=== PATIENT | female | born 1985 | race Caucasian/White ===

== ENCOUNTER 2018-02-17 20:31 | Emergency (ER) | payer OTHER ==
[2018-02-17] MEDS ORDERED: NORMAL SALINE 1000 ML 1,000 ML IV ONE (22:09)
[2018-02-17] MEDS ORDERED: METOCLOPRAMIDE HCL INJ/PF 10 MG/2 ML SDV IV ONE (22:09)
--- NOTE | 2018-02-17 22:12 | ER Document Report ---
ED GI/ - General Chief Complaint: Nausea/Vomiting Stated Complaint: NAUSEA Time Seen by Provider: 02/17/18 21:59 Notes: Patient is a 32-year-old female, at 18 weeks gestation by ultrasound, that comes to the emergency department for chief complaint of vomiting over the past 24 hours. She denies fever or chills, she states she has had some mild cramps in the abdomen but no particular abdominal pain. She denies dysuria, flank pain, vaginal bleeding. She is feeling baby move. She had an unremarkable loose stool earlier she reports. She denies hematemesis or hematochezia. She has had a , takes Diclegis for nausea, denies any other medical history. She denies any obvious sick contacts, raw food, recent travel, recent antibiotics. Follows with [facility]. - Related Data Allergies/Adverse Reactions: latex Allergy (Verified 02/17/18 20:33) Past Medical History - General Information source: Patient - Social History Smoking Status: Never Smoker Chew tobacco use (# tins/day): No Frequency of alcohol use: None Drug Abuse: None Lives with: Family Family History: Reviewed & Not Pertinent Patient has suicidal ideation: No Patient has homicidal ideation: No - Medical History Medical History: Negative Renal/ Medical History: Denies: Hx Peritoneal Dialysis Past Surgical History: Reports: Hx Section - Immunizations Immunizations up to date: Yes Hx Diphtheria, Pertussis, Tetanus Vaccination: Yes Review of Systems - Review of Systems Constitutional: No symptoms reported EENT: No symptoms reported Cardiovascular: No symptoms reported Respiratory: No symptoms reported Gastrointestinal: See HPI Genitourinary: No symptoms reported Female Genitourinary: See HPI Musculoskeletal: No symptoms reported Skin: No symptoms reported Hematologic/Lymphatic: No symptoms reported Neurological/Psychological: No symptoms reported Physical Exam - Vital signs Vitals: Temp Pulse Resp BP Pulse Ox 98.7 F 110 H 18 120/78 98 02/17/18 20:43 02/17/18 20:43 02/17/18 20:43 02/17/18 20:43 02/17/18 20:43 - Notes Notes: GENERAL: Alert, interacts well. No acute distress. HEAD: Normocephalic, atraumatic. EYES: Pupils equal, round, and reactive to light. Extraocular movements intact. ENT: Oral mucosa dry, tongue midline. Oropharynx unremarkable. Airway patent. Nares patent, no nasal septal hematoma, TM's intact. NECK: Full range of motion. Supple. Trachea midline. LUNGS: Clear to auscultation bilaterally, no wheezes, rales, or rhonchi. No respiratory distress. HEART: Tachycardia, normal rhythm. No murmur ABDOMEN: Benign abdomen with no tenderness, guarding, rigidity, or rebound tende rness. Gravid abdomen. GENITOURINARY: Deferred EXTREMITIES: Moves all 4 extremities spontaneously. No edema, normal radial and dorsalis pedis pulses bilaterally. No cyanosis. BACK: no cervical, thoracic, lumbar midline tenderness. No saddle anesthesia, normal distal neurovascular exam. NEUROLOGICAL: Alert and oriented x3. Normal speech. [cranial nerves II through XII grossly intact]. PSYCH: Normal affect, normal mood. SKIN: Warm, dry, normal turgor. No rashes or lesions noted. Course - Re-evaluation Re-evalutation: Nontender abdomen. No current abdominal complaints. Patient is dehydrated appearing on exam with dry mucous membranes and tachycardia. Patient is feeling baby move. No bleeding. CBC unremarkable. Mild hyponatremia. Ketones in urine with elevated specific gravity. Consistent with dehydration. Based on her examination and workup I have low suspicion of acute abdomen. Low suspicion of abruption or gynecologic emergency. After rehydration, nausea medication, patient tolerated p.o. without any difficulty. Tachycardia resolved. Patient has no current complaints. Requesting to be discharged home. Requesting the same medication she was provided because of the efficacy. Discussed medications, follow-up, and return precautions in detail. Patient states understanding and agreement. Stable at time of discharge. - Vital Signs Vital signs: Temp Pulse Resp BP Pulse Ox 97.8 F 93 18 119/70 99 02/17/18 23:50 02/17/18 23:50 02/17/18 20:43 02/17/18 23:50 02/17/18 23:50 - Laboratory Result Diagrams: 02/17/18 21:46 02/17/18 21:46 Laboratory results interpreted by me: 02/17/18 02/17/18 02/17/18 21:46 21:46 22:03 RDW 14.1 H Sodium 136.3 L BUN 5 L Creatinine 0.39 L AST 78 H Urine Protein 30 H Urine Ketones 20 H Urine Urobilinogen 2.0 H Discharge - Discharge Clinical Impression: Dehydration Nausea and vomiting Qualifiers: Vomiting type: unspecified Vomiting Intractability: non-intractable Qualified Code(s): R11.2 - Nausea with vomiting, unspecified Condition: Stable Disposition: HOME, SELF-CARE Additional Instructions: Your workup shows dehydration but no other concerning findings. Take Reglan as prescribed for nausea, take Pepcid to help relieve the abdominal cramps, start with clear fluids and bland diet and slowly progress. Follow-up with primary care. Return if you worsen including uncontrolled vomiting, severe abdominal pain, fever/chills, or any other concerning or worsening symptoms. Prescriptions: Famotidine [Pepcid 20 mg Tablet] 20 mg PO BID #12 tablet Metoclopramide HCl [Reglan] 5 mg PO ASDIR PRN #30 tablet PRN Reason:
[2018-02-17 22:20] LABS: ABSOLUTE EOSINOPHILS # (AUTO) 0.1 10^3/uL (0.0-0.6); ABSOLUTE LYMPHOCYTES (AUTO) 1.5 10^3/uL (0.5-4.7); ABSOLUTE MONOCYTES (AUTO) 0.6 10^3/uL (0.1-1.4); ABSOLUTE NEUT (AUTO) 7.3 10^3/uL (1.7-8.2); BASOPHILS % (AUTO) 0.1 % (0-2); EOSINOPHILS % (AUTO) 0.9 % (0-6); HEMATOCRIT 36.5 % (36.0-47.0); HEMOGLOBIN 12.7 g/dL (12.0-15.5); LYMPHOCYTES % (AUTO) 15.6 % (13-45); MEAN CORPUSCULAR HEMOGLOBIN 29.4 pg (27.0-33.4); MEAN CORPUSCULAR HGB CONC 34.7 g/dL (32.0-36.0); MEAN CORPUSCULAR VOLUME 85 fl (80-97); MONOCYTES % (AUTO) 6.2 % (3-13); PLATELET COUNT 253 10^3/uL (150-450); RED CELL DISTRIBUTION WIDTH 14.1 % (11.5-14.0); SEGMENTED NEUTROPHILS % (AUTO) 77.2 % (42-78); TOTAL CELLS COUNTED % (AUTO) 100 %; WHITE BLOOD COUNT 9.4 10^3/uL (4.0-10.5)
[2018-02-17 22:26] LABS: ALANINE AMINOTRANSFERASE 40 U/L (9-52); ALBUMIN 4.5 g/dL (3.5-5.0); ALKALINE PHOSPHATASE 58 U/L (38-126); ANION GAP 11 (5-19); ASPARTATE AMINO TRANSFERASE 78 U/L (14-36); BILIRUBIN,DIRECT 0.1 mg/dL (0.0-0.4); BILIRUBIN,TOTAL 0.7 mg/dL (0.2-1.3); BLOOD UREA NITROGEN 5 mg/dL (7-20); CALCIUM 9.8 mg/dL (8.4-10.2); CARBON DIOXIDE 23 mmol/L (22-30); CHLORIDE 102 mmol/L (98-107); GLUCOSE 108 mg/dL (75-110); LIPASE 97.8 U/L (23-300); SODIUM 136.3 mmol/L (137-145); TOTAL PROTEIN 7.4 g/dL (6.3-8.2)
[2018-02-17 22:37] LABS: APPEARANCE,URINE SLIGHTLY-CLOUDY; BILIRUBIN,URINE NEGATIVE (NEGATIVE); GLUCOSE, URINE NEGATIVE (NEGATIVE); KETONES,URINE 20 mg/dL (NEGATIVE); LEUKOCYTE ESTERASE,URINE NEGATIVE (NEGATIVE); NITRITE,URINE NEGATIVE (NEGATIVE); PROTEIN,URINE 30 mg/dL (NEGATIVE); URINE SPECIFIC GRAVITY 1.024
[2018-02-17 22:38] LABS: COLOR,URINE YELLOW
[2018-02-17] MEDS ORDERED: FAMOTIDINE 20 MG TABLET PO ONE (23:10)
[2018-02-17 23:52] VITALS: BP 119/70
== END 2018-02-17 23:50 | disposition home or self-care (01) ==
LOC: ER 20:31
DX: O21.8 Other vomiting complicating pregnancy (principal); Z3A.18 18 weeks gestation of pregnancy; E86.0 Dehydration
CPT/HCPCS: 99284; 36415; 83690; 85025; 80053; 81001; J2765; J7030

== ENCOUNTER 2019-03-11 02:18 | Emergency (ER) | payer MEDICAID, OTHER ==
[2019-03-11 03:45] LABS: ABSOLUTE BASOPHILS # (AUTO) 0.1 10^3/uL (0.0-0.2); ABSOLUTE EOSINOPHILS # (AUTO) 0.2 10^3/uL (0.0-0.6); ABSOLUTE LYMPHOCYTES (AUTO) 3.3 10^3/uL (0.5-4.7); ABSOLUTE MONOCYTES (AUTO) 0.6 10^3/uL (0.1-1.4); ABSOLUTE NEUT (AUTO) 5.8 10^3/uL (1.7-8.2); BASOPHILS % (AUTO) 1.1 % (0-2); HEMATOCRIT 38.8 % (36.0-47.0); HEMOGLOBIN 13.2 g/dL (12.0-15.5); LYMPHOCYTES % (AUTO) 33.1 % (13-45); MEAN CORPUSCULAR HEMOGLOBIN 28.9 pg (27.0-33.4); MEAN CORPUSCULAR HGB CONC 33.9 g/dL (32.0-36.0); MEAN CORPUSCULAR VOLUME 85 fl (80-97); MONOCYTES % (AUTO) 5.9 % (3-13); PLATELET COUNT 274 10^3/uL (150-450); RED BLOOD COUNT 4.55 10^6/uL (3.72-5.28); RED CELL DISTRIBUTION WIDTH 14.8 % (11.5-14.0); SEGMENTED NEUTROPHILS % (AUTO) 57.9 % (42-78); TOTAL CELLS COUNTED % (AUTO) 100 %
[2019-03-11 04:03] LABS: ALBUMIN 4.6 g/dL (3.5-5.0); ALKALINE PHOSPHATASE 65 U/L (38-126); ANION GAP 12 (5-19); ASPARTATE AMINO TRANSFERASE 43 U/L (14-36); BILIRUBIN,TOTAL 0.8 mg/dL (0.2-1.3); BLOOD UREA NITROGEN 10 mg/dL (7-20); CALCIUM 10.1 mg/dL (8.4-10.2); CARBON DIOXIDE 23 mmol/L (22-30); CHLORIDE 102 mmol/L (98-107); GLUCOSE 116 mg/dL (75-110); POTASSIUM 4.5 mmol/L (3.6-5.0); TOTAL PROTEIN 8.2 g/dL (6.3-8.2)
[2019-03-11 04:06] LABS: APPEARANCE,URINE SLIGHTLY-CLOUDY; BILIRUBIN,URINE NEGATIVE (NEGATIVE); COLOR,URINE YELLOW; GLUCOSE, URINE NEGATIVE (NEGATIVE); KETONES,URINE NEGATIVE (NEGATIVE); LEUKOCYTE ESTERASE,URINE NEGATIVE (NEGATIVE); NITRITE,URINE NEGATIVE (NEGATIVE); PROTEIN,URINE NEGATIVE (NEGATIVE); URINE SPECIFIC GRAVITY 1.019; UROBILINOGEN,URINE NEGATIVE mg/dL (<2.0)
--- NOTE | 2019-03-11 07:06 | ER Document Report ---
ED General - General Chief Complaint: Abdominal Pain Stated Complaint: UPPER RIGHT ABDOMINAL PAIN Time Seen by Provider: 03/11/19 06:41 Mode of Arrival: Ambulatory Information source: Patient Notes: 33-year-old female arrives by POV with her mother and she is now 6 weeks gravid. She is G3, P2 and reports she has had gallbladder issues for many years. Patient upon my exam at 0 630 was sleeping and now doing well. She says she slept off her gallbladder attack because of the long wait. Patient also reports the right upper quadrant pain that radiates to her right CVA area. Poi nting to this area. She denies any vomiting but does admit to some nausea and mother reports she has GERD herself. Mother is also sleeping in the side chair. - HPI Onset: Just prior to arrival Onset/Duration: Sudden Quality of pain: Achy Severity: Moderate Pain Level: 2 Associated symptoms: Nausea Exacerbated by: Movement Relieved by: Denies Similar symptoms previously: Yes Recently seen / treated by doctor: Yes - Related Data Allergies/Adverse Reactions: latex Allergy (Verified 02/17/18 20:33) Past Medical History - General Information source: Patient - Social History Smoking Status: Never Smoker Cigarette use (# per day): No Chew tobacco use (# tins/day): No Smoking Education Provided: No Frequency of alcohol use: None Lives with: Family Family History: Reviewed & Not Pertinent Patient has suicidal ideation: No Patient has homicidal ideation: No Renal/ Medical History: Denies: Hx Peritoneal Dialysis Past Surgical History: Reports: Hx Section - Immunizations Immunizations up to date: Yes Hx Diphtheria, Pertussis, Tetanus Vaccination: Yes Review of Systems - Review of Systems Constitutional: No symptoms reported EENT: No symptoms reported Cardiovascular: No symptoms reported Respiratory: No symptoms reported Gastrointestinal: Abdominal pain, Nausea Genitourinary: No symptoms reported Female Genitourinary: No symptoms reported Musculoskeletal: No symptoms reported Skin: No symptoms reported Hematologic/Lymphatic: No symptoms reported Neurological/Psychological: No symptoms reported Physical Exam - Vital signs Vitals: Temp Pulse Resp BP Pulse Ox 97.8 F 90 17 135/81 H 98 03/11/19 02:27 03/11/19 02:27 03/11/19 02:27 03/11/19 02:27 03/11/19 02:27 Interpretation: Normal - General General appearance: Other - Patient initially sleeping as I walked into the room after knocking on the door. Patient was laying on the gurney asleep and mother was in the side chair asleep. I woke them up and patient reports she no longer has right upper quadrant abdominal pain. She says she has a long history of this problem. - HEENT Head: Normocephalic Eyes: Normal Conjunctiva: Normal Cornea: Normal Extraocular movements intact: Yes Eyelashes: Normal Pupils: PERRL Ears: Normal External canal: Normal Nasal: Normal Mouth/Lips: Normal Mucous membranes: Normal Pharynx: Normal Neck: Normal - Respiratory Respiratory status: No respiratory distress Chest status: Nontender Breath sounds: Normal Chest palpation: Normal - Cardiovascular Rhythm: Regular Murmur: No Friction rub: No Maya's crunch: No - Abdominal Inspection: Obese Distension: No distension Bowel sounds: Normal Tenderness: Tender - RUQ with right flan radiation - Back Back: Tender - Neurological Neuro grossly intact: Yes Cognition: Normal Orientation: AAOx4 Nancie Coma Scale Eye Opening: Spontaneous Nancie Coma Scale Verbal: Oriented Nancie Coma Scale Motor: Obeys Commands [place] Coma Scale Total: 15 Speech: Normal Cranial nerves: Normal Cerebellar coordination: Normal - Psychological Associated symptoms: Normal affect - Skin Skin Temperature: Warm Skin Moisture: Dry Course - Vital Signs Vital signs: Temp Pulse Resp BP Pulse Ox 98.1 F 81 16 131/77 H 97 03/11/19 09:26 03/11/19 09:26 03/11/19 09:26 03/11/19 09:26 03/11/19 09:26 - Laboratory Result Diagrams: 03/11/19 03:35 03/11/19 03:35 Laboratory results interpreted by me: 03/11/19 03/11/19 03/11/19 03:35 03:35 03:35 RDW 14.8 H Creatinine 0.50 L Glucose 116 H AST 43 H Serum HCG, Qual POSITIVE H Critical Care Note - Critical Care Note Total time excluding time spent on procedures (mins): 90 Comments: This case was discussed with Dr. Mitch Sahu who advises he will come see the patient in her room #6. Ultrasound was reported as a 3 x 2 sonometer stones with gallbladder wall thickening. Mitch saw this patient in her room around 1020 and he advises outpatient follow-up in the office and change diet to nonfat. Discharge - Discharge Clinical Impression: Gallstone Qualifiers: Cholecystitis presence: without cholecystitis Biliary obstruction: without biliary obstruction Qualified Code(s): K80.20 - Calculus of gallbladder without cholecystitis without obstruction Qualifiers: Weeks of gestation: less than 8 weeks Qualified Code(s): Z3A.01 - Less than 8 weeks gestation of Abdominal pain Qualifiers: Abdominal location: right upper quadrant Qualified Code(s): R10.11 - Right upper quadrant pain Condition: Good Disposition: HOME, SELF-CARE Instructions: Abdominal Pain ([facility]), Low-Fat Diet ([facility]) Additional Instructions: Follow-up with Dr. Mitch Sahu in his office and adhere to a low-fat diet. Take medicine as directed like Tylenol. Prescriptions: Sucralfate [Carafate 1 gm Tablet] 1 gm PO BID PRN #15 tablet PRN Reason: Forms: Return to Work
--- NOTE | 2019-03-11 08:54 | RADIOLOGY REPORT (SQ) ---
EXAM DESCRIPTION: U/S ABDOMEN LIMITED W/O DOP COMPLETED DATE/TIME: 03/11/2019 7:54 am REASON FOR STUDY: pain COMPARISON: None. TECHNIQUE: Dynamic and static grayscale images acquired of the abdomen and recorded on PACS. Additio nal selected color Doppler and spectral images recorded. LIMITATIONS: Body habitus, midline bowel gas FINDINGS: PANCREAS: Midline pancreas unremarkable LIVER: Normal size, diffusely echogenic from fatty infiltration, difficult to penetrate with the ultr asound energy. LIVER VASCULATURE: Normal directional flow of the main portal vein and hepatic veins. GALLBLADDER: 3 x 2 cm stone lodged at the gallbladder neck. Borderline gallbladder wall thickening 3 mm. No pericholecystic fluid. ULTRASOUND-DETECTED WADSWORTH'S SIGN: Negative. INTRAHEPATIC DUCTS AND COMMON DUCT: CBD and intrahepatic ducts normal caliber. No filling defects. D istal most common duct not well seen INFERIOR VENA CAVA: Normal flow. AORTA: No aneurysm. RIGHT KIDNEY: Normal size. Normal echogenicity. No solid or suspicious masses. No hydronephrosis. No calcifications. PERITONEAL AND RIGHT PLEURAL SPACE: No ascites or effusions. OTHER: No other significant findings. IMPRESSION: 3 x 2 cm stone at the gallbladder neck. Borderline gallbladder wall thickening Fatty liver TECHNICAL DOCUMENTATION: JOB ID: [id number] [employer]- All Rights Reserved Reading location - IP/workstation name: [email or web address]
--- NOTE | 2019-03-11 10:37 | PDOC CONSULTATION ---
Consultation Consult Date: 03/11/19 Provider Consulted: PRESTON SEAY Consult reason:: Evaluate gallbladder History of Present Illness History of Present Illness: BILL BUENROSTRO is a 33 year old female who is currently 6 weeks with known history of gallstones with about 10 prior attacks over the years. Now presenting with another episode of right upper quadrant abdominal pain. In the ER however the pain has completely resolved. Patient feels well currently. No history of jaundice. Past Medical History Medical History: None Past Surgical History Past Surgical History: Reports: Section Social History Lives with: Family Smoking Status: Former Smoker - Quit about 6 years ago. Frequency of Alcohol Use: None Hx Recreational Drug Use: No Drugs: None Family History Family History: Reviewed & Not Pertinent Parental Family History Reviewed: Yes Children Family History Reviewed: Yes Sibling(s) Family History Reviewed.: Yes Medication/Allergy Home Medications: Famotidine [Pepcid 20 mg Tablet] 20 mg PO BID #12 tablet 02/17/18 Metoclopramide HCl [Reglan] 5 mg PO ASDIR PRN #30 tablet 02/17/18 Allergies/Adverse Reactions: latex Allergy (Verified 02/17/18 20:33) Physical Exam Vital Signs: Temp Pulse Resp BP Pulse Ox 98.1 F 81 16 131/77 H 97 03/11/19 09:26 03/11/19 09:26 03/11/19 09:26 03/11/19 09:26 03/11/19 09:26 Intake & Output 03/10/19 03/11/19 03/12/19 06:59 06:59 06:59 Weight 110 kg General appearance: PRESENT: no acute distress, cooperative Eye exam: PRESENT: conjunctiva pink Respiratory exam: PRESENT: clear to auscultation kaela Cardiovascular exam: PRESENT: RRR GI/Abdominal exam: PRESENT: other - Soft, nondistended, nontender to palpation even with deep palpation in the right upper quadrant. Neurological exam: PRESENT: alert, awake Psychiatric exam: PRESENT: appropriate affect Skin exam: PRESENT: warm Results Laboratory Results: 03/11/19 03:35 03/11/19 03:35 03/11/19 03/11/19 03/11/19 03:35 03:35 03:35 WBC 10.0 RBC 4.55 Hgb 13.2 Hct 38.8 MCV 85 MCH 28.9 MCHC 33.9 RDW 14.8 H Plt Count 274 Seg Neutrophils % 57.9 Sodium 137.0 Potassium 4.5 Chloride 102 Carbon Dioxide 23 Anion Gap 12 BUN 10 Creatinine 0.50 L Est GFR ( Amer) > 60 Glucose 116 H Calcium 10.1 Total Bilirubin 0.8 AST 43 H Alkaline Phosphatase 65 Total Protein 8.2 Albumin 4.6 Lipase 134.5 Serum HCG, Qual POSITIVE H Urine Color Urine Appearance Urine pH Ur Specific [place] Urine Protein Urine Glucose (UA) Urine Ketones Urine Blood Urine Nitrite Ur Leukocyte Esterase Urine WBC (Auto) Urine RBC (Auto) 03/11/19 03:57 WBC RBC Hgb Hct MCV MCH MCHC RDW Plt Count Seg Neutrophils % Sodium Potassium Chloride Carbon Dioxide Anion Gap BUN Creatinine Est GFR ( Amer) Glucose Calcium Total Bilirubin AST Alkaline Phosphatase Total Protein Albumin Lipase Serum HCG, Qual Urine Color YELLOW Urine Appearance SLIGHTLY-CLOUDY Urine pH 5.0 Ur Specific [place] 1.019 Urine Protein NEGATIVE Urine Glucose (UA) NEGATIVE Urine Ketones NEGATIVE Urine Blood NEGATIVE Urine Nitrite NEGATIVE Ur Leukocyte Esterase NEGATIVE Urine WBC (Auto) 0 Urine RBC (Auto) 0 Impressions: Abdomen Ultrasound 03/11/19 06:58 IMPRESSION: 3 x 2 cm stone at the gallbladder neck. Borderline gallbladder wall thickening Fatty liver Assessment & Plan - Diagnosis (1) Gallstone Qualifiers: Cholecystitis presence: without cholecystitis Biliary obstruction: without biliary obstruction Qualified Code(s): K80.20 - Calculus of gallbladder without cholecystitis without obstruction Plan: Symptomatic gallstones. Currently pain-free with no tenderness. I do not think she has cholecystitis. She would benefit from a laparoscopic cholecystectomy but ideally after her . I will have her follow-up at [facility] to get plugged into the surgical system in case she has development of acute cholecystitis or she has such frequent attacks that cholecystectomy is indicated during . I have had a long conversation with the patient con cerning the warning signs of cholecystitis, that is, persistent pain, fever, frequent attacks. If she has any of these warning signs or symptoms she is to return back to the ER or call our office immediately. Recommended a low-fat diet for the patient.
[2019-03-11 10:50] VITALS: BP 126/75
== END 2019-03-11 10:56 | disposition home or self-care (01) ==
LOC: ER 02:18
DX: O26.91 Pregnancy related conditions, unspecified, first trimester (principal); K80.80 Other cholelithiasis without obstruction; R10.11 Right upper quadrant pain; Z3A.01 Less than 8 weeks gestation of pregnancy; Z91.040 Latex allergy status
CPT/HCPCS: 36415; 76705; 80053; 81001; 83690; 84703; 85025; 99291; 99292